=== PATIENT | female | born 1950 | race Caucasian/White ===

== ENCOUNTER → 2020-05-24 13:19 | Outpatient (REF) | payer MEDICARE, SELFPAY | LOC: ANHLAB 13:19 | PROVIDERS: Visit Provider Nurse Practitioner | DX: D22.5 Melanocytic nevi of trunk (principal) | CPT/HCPCS: 88305; 88342 ==

== ENCOUNTER → 2021-09-03 14:46 | Outpatient (REF) | payer MEDICARE, SELFPAY | LOC: ANHLAB 14:46 | PROVIDERS: Visit Provider Nurse Practitioner | DX: L81.4 Other melanin hyperpigmentation (principal) | CPT/HCPCS: 88305; 88342 ==